=== PATIENT | female | born 1960 | race Caucasian/White ===

== ENCOUNTER 2024-05-26 07:20 | Day surgery (SDC) | payer BC ==
--- NOTE | 2024-05-25 12:06 | HP ---
HISTORY OF PRESENT ILLNESS: The patient is a 63-year-old female who presents with cholelithiasis. She has been to the ER with some abdominal pain, chest heaviness, and nausea. She was sent to [facility] with some fluid overload. Apparently she had some findings of gallstones up there and her bilirubin was elevated. They did an MRCP and it was fine. Her repeat labs have been fine. Her bilirubin came down to normal. She does admit to drinking 3 or 4 drinks about every day. PAST MEDICAL HISTORY: Diabetes, hyperlipidemia, asthma, hypertension. HOME MEDICATIONS: Albuterol, Jardiance, Lasix, potassium, rosuvastatin, Singulair, valsartan, multivitamin, calcium. ALLERGIES: Dupixent. PAST SURGICAL HISTORY: Gastric bypass, knee surgery, . SOCIAL HISTORY: Daily alcohol. No tobacco. FAMILY HISTORY: Heart disease, cancer unspecified. REVIEW OF SYSTEMS: CONSTITUTIONAL: Denies fever or chills. CHEST: Denies shortness of breath. CARDIOVASCULAR: Denies chest pain. ABDOMEN: Reports abdominal pain. PHYSICAL EXAMINATION: GENERAL: No acute distress. CARDIOVASCULAR: Regular rate and rhythm. RESPIRATORY: Nonlabored. No shortness of breath. ABDOMEN: Soft. IMPRESSION: Cholelithiasis. PLAN: Laparoscopic cholecystectomy with Dr. Aayush Cormier. This report was dictated for Dr. Aayush Cormier by Bailee Cates NP
[2024-05-26] MEDS ORDERED: Lactated Ringers 1,000 ML IV ONE (07:26)
[2024-05-26] MEDS ORDERED: CEFOXITIN 2 GM/100 ML NACL IVPB 2 GM/100 ML IVPB IV ONE (07:26)
[2024-05-26] MEDS: Lactated Ringers 1,000 ML IV SCH (07:33)
[2024-05-26] MEDS: CEFOXITIN 2 GM/100 ML NACL IVPB 2 GM/100 ML IVPB IV ONE (07:33)
[2024-05-26] MEDS ORDERED: SUBLIMAZE 100 MCG/2 ML ONE ×3 (07:34→12:05)
[2024-05-26] MEDS ORDERED: Zofran 4 MG/2 ML VIAL ONE (07:35)
[2024-05-26] MEDS ORDERED: propofoL IV ONE (07:35)
[2024-05-26] MEDS ORDERED: ROCURONIUM BROMIDE IV ONE ×2 (07:35→11:13)
[2024-05-26] MEDS ORDERED: dexAMETHasone sodium phosphate ONE (07:35)
[2024-05-26] MEDS ORDERED: Xylocaine-Mpf 2% 5 Ml Vial ONE (07:35)
[2024-05-26 07:51] VITALS: RESP 16
[2024-05-26 08:01] LABS: ANION GAP 13.9 MEQ/L (5-15); Calcium 9.1 mg/dL (8.4-10.2); Creatinine 1 0.56 mg/dL (0.52-1.04); EST GLOMERULAR FILTRATION RATE 101.2 ML/MIN
[2024-05-26] MEDS ORDERED: Sodium Chloride 0.9% 1000 ML 1,000 ML ONE (08:15)
[2024-05-26] MEDS ORDERED: BRIDION 200MG/2ML IV ONE (10:39)
[2024-05-26] MEDS ORDERED: TRANDATE 20 MG/4 ML SYRINGE IV ONE (11:00)
[2024-05-26] MEDS ORDERED: DILAUDID 2 MG INJECTION ONE (11:38)
[2024-05-26 12:58] VITALS: PULSE 74; O2SAT 95
[2024-05-26] MEDS: NORCO 7.5/325 MG TAB PO ONE (12:59)
[2024-05-26 13:15] VITALS: BP 165/95; TEMP 98.4
--- NOTE | 2024-05-30 11:14 | OP ---
SURGERY DATE/TIME: 05/26/2024 PREOPERATIVE DIAGNOSIS: Symptomatic cholelithiasis. POSTOPERATIVE DIAGNOSIS: Acute empyema with stones. PROCEDURE: Laparoscopic cholecystectomy. SURGEON: Aayush Cormier MD ART GALLERY DIRECTOR: Medical Student 3. ANESTHESIA: General. COMPLICATIONS: None. CONDITION: Stable. DRAINS: One. BLOOD LOSS: 50 mL. INDICATIONS: Patient with symptomatic stone disease, taken to surgery. General anesthetic. Routine prep and drape. DESCRIPTION OF PROCEDURE AND FINDINGS: You could not see the gallbladder. It was subtly stuck in the omental . The omental was taken down and then there was a perforation on the medial aspect of the gallbladder that led out exuberant purulence. This was cultured. Some stones were picked up. As a matter of fact, the stones continued to be picked up here during the case. There were basically ruptures on the medial inside wall and into the liver. The cystic duct defined and taken with this stapling device, horne cartridge. Cystic artery was triply clamped. Gallbladder rolled out of the gallbladder fossa. It was noted there was perforation of high medial. With care and patience, this was delivered, placed in the bag and removed. The field was totally cleaned. No residual stones. Purulence had been irrigated. The field was dry. A 10 THIAGO was placed. Hole closure device with two sutures of #0 Vicryl in the epigastric hole where the gallbladder was then removed. CO2 was exsufflated. Drain secured with 2-0 PDS. CO2 aspirated. Skin closed with doyle. Sterile dressings applied. The patient tolerated the procedure satisfactorily.
== END 2024-05-26 13:43 | disposition home or self-care (01) ==
LOC: SDC 07:20
PROVIDERS: ATTEND Surgery
DX: K80.20 Calculus of gallbladder without cholecystitis without obstruction (principal); J86.9 Pyothorax without fistula
CPT/HCPCS: 36415; 80048; 87070; 87075; 93005; J0694; J1100; J1171; J2405; J2704; J3010; A9270-GY